=== PATIENT | male | born 1940 | race Two or more races ===

== ENCOUNTER 2021-10-14 14:09 | Emergency (ER) | payer OTHER ==
[2021-10-14 15:11] VITALS: TEMP 98; BMI 27.2
[2021-10-14] MEDS ORDERED: BEBTELOVIMAB (EUA) 175 MG/2 ML VIAL IVPUSH ONE (15:32)
[2021-10-14 17:19] VITALS: BP 132/55; PULSE 71
== END 2021-10-14 18:59 | disposition home or self-care (01) ==
LOC: JER 14:09
DX: U07.1 COVID-19 (principal)
CPT/HCPCS: 99284-25; M0222; Q0222